=== PATIENT | female | born 1990 | race African-American/Black ===

== ENCOUNTER 2021-09-26 06:10 | Inpatient (IN) | payer OTHER ==
[2021-09-26] MEDS ORDERED: ELECTROLYTE-148 SOLN 500 ML IV ONE (07:46)
[2021-09-26] MEDS ORDERED: CITRIC ACID/SODIUM CITRATE 30 ML UNIT-DOSE CUP PO ONE (07:46)
[2021-09-26] MEDS ORDERED: ELECTROLYTE-148 SOLN 1,000 ML IV SCH (08:00)
[2021-09-26 08:08] VITALS: BMI 29.2
[2021-09-26] MEDS ORDERED: ceFAZolin SODIUM 1 GM VIAL ONE (09:50)
[2021-09-26] MEDS ORDERED: KETOROLAC TROMETHAMINE 30 MG/1 ML VIAL ONE (09:50)
[2021-09-26] MEDS ORDERED: ONDANSETRON 4 MG/2 ML VIAL ONE (09:50)
[2021-09-26] MEDS ORDERED: OXYTOCIN 10 UNITS/ML VIAL ONE (09:50)
[2021-09-26] MEDS ORDERED: METHYLERGONOVINE MALEATE 0.2 MG/1 ML AMP IM PRN (11:23)
[2021-09-26] MEDS ORDERED: SENNOSIDES/DOCUSATE COMBO (SENNA PLUS) TABLET (UD) PO PRN (11:23)
[2021-09-26] MEDS ORDERED: ACETAMINOPHEN 325 MG TABLET (FP) PO PRN (11:23)
[2021-09-26] MEDS ORDERED: IBUPROFEN 800 MG/8 ML IJ IVPB PRN (11:23)
[2021-09-26] MEDS ORDERED: OXYTOCIN 20 UNITS in 0.9% NS 20 UNIT/1,000 ML INFUS.BAG IV ONE (12:21)
[2021-09-26] MEDS: OXYTOCIN 20 UNITS in 0.9% NS 20 UNIT/1,000 ML INFUS.BAG IV SCH ×2 (12:30→21:55)
[2021-09-26] MEDS ORDERED: ONDANSETRON 4 MG/2 ML VIAL IVPUSH PRN (12:35)
[2021-09-26] MEDS ORDERED: oxyCODONE HCL 5 MG TABLET PO PRN ×2 (23:23)
[2021-09-27] MEDS: SIMETHICONE 80 MG TAB.CHEW (FP) PO PRN ×4 (03:20→22:27)
[2021-09-27 08:46] LABS: BASO % 0.2 % (0-2.0); EOS % 0.7 % (0-4.5); HEMATOCRIT 27.5 % (32.4-45.2); HEMOGLOBIN 9.3 GM/dL (10.7-15.3); MCH 29.2 pg (25.7-33.7); MCHC 33.9 g/dl (32.0-36.0); MONO % 8.7 % (3.8-10.2); NEUT % 75.4 % (42.8-82.8); PLATELET COUNT 195 10^3/uL (134-434); RDW 13.8 % (11.6-15.6); WHITE BLOOD COUNT 11.3 K/mm3 (4.0-10.0)
[2021-09-27] MEDS: PRENATAL VITAMINS W/ FOLIC ACID TABLET (FP) PO SCH (10:23)
[2021-09-27] MEDS ORDERED: BISACODYL 10 MG SUPP.RECT RC PRN (11:23)
[2021-09-27] MEDS: IBUPROFEN 600 MG TABLET (FP) PO PRN (15:59)
[2021-09-28] MEDS: IBUPROFEN 600 MG TABLET (FP) PO PRN (02:49)
[2021-09-28 10:27] VITALS: BP 110/74; PULSE 90; TEMP 98.1
[2021-09-28] MEDS: PRENATAL VITAMINS W/ FOLIC ACID TABLET (FP) PO SCH (10:33)
== END 2021-09-28 12:15 | disposition home or self-care (01) | DRG 540 ==
LOC: JLDR 06:10 → J3W 12:45
PROVIDERS: ADMIT Obstetrics & Gynecology; ATTEND Obstetrics & Gynecology
PROC: 10D00Z1 Extraction of Products of Conception, Low, Open Approach (ICD-10-PCS; principal; 2021-09-26)
DX: O34.211 Maternal care for low transverse scar from previous cesarean delivery (principal); O32.2XX0 Maternal care for transverse and oblique lie, not applicable or unspecified; Z3A.39 39 weeks gestation of pregnancy; Z37.0 Single live birth
CPT/HCPCS: 36415; 85025

== ENCOUNTER 2024-01-10 10:19 | Emergency (ER) | payer OTHER ==
[2024-01-10 10:32] VITALS: BP 133/70; PULSE 104; RESP 18; TEMP 98.1; BMI 20.5
[2024-01-10] MEDS ORDERED: DIPHTH,PERTUSS(ACELL),TET 0.5 ML DISP.SYRIN IM ONE (12:49)
[2024-01-10] MEDS: DIPHTH,PERTUSS(ACELL),TET 0.5 ML DISP.SYRIN IM ONE (12:52)
== END 2024-01-10 13:15 | disposition home or self-care (01) ==
LOC: JER 10:19 → JERFT 10:19
PROC: 0HQFXZZ Repair Right Hand Skin, External Approach (ICD-10-PCS; principal; 2024-01-10)
PROC: 3E0234Z Introduction of Serum, Toxoid and Vaccine into Muscle, Percutaneous Approach (ICD-10-PCS; 2024-01-10)
DX: S61.511A Laceration without foreign body of right wrist, initial encounter (principal); W26.8XXA Contact with other sharp object(s), not elsewhere classified, initial encounter
CPT/HCPCS: 12002-25; 90471; 90715; 99283-25

== ENCOUNTER 2024-03-13 19:34 | Emergency (ER) | payer OTHER ==
[2024-03-13 19:41] VITALS: BP 128/78; PULSE 91; RESP 18; TEMP 98.3; BMI 21.9
== END 2024-03-13 23:22 | disposition home or self-care (01) ==
LOC: JERFT 19:34 → JER 19:34
PROC: 0CQ0XZZ Repair Upper Lip, External Approach (ICD-10-PCS; principal; 2024-03-13)
DX: S01.511A Laceration without foreign body of lip, initial encounter (principal); W22.09XA Striking against other stationary object, initial encounter
CPT/HCPCS: 99282-25

== ENCOUNTER 2024-03-18 13:06 | Emergency (ER) | payer OTHER ==
[2024-03-18 13:11] VITALS: BP 136/86; PULSE 86; RESP 18; TEMP 97; BMI 22.3
== END 2024-03-18 16:06 | disposition home or self-care (01) ==
LOC: JERFT 13:06
DX: Z48.00 Encounter for change or removal of nonsurgical wound dressing (principal)
CPT/HCPCS: 99281-25

== ENCOUNTER 2025-06-27 03:09 | Emergency (ER) | payer OTHER ==
[2025-06-27 03:34] VITALS: BMI 22.3
[2025-06-27] MEDS ORDERED: ACETAMINOPHEN INJECTION 100 ML ONE (03:52)
[2025-06-27] MEDS: ACETAMINOPHEN 500 MG TABLET (FP) PO ONE (04:08)
[2025-06-27] MEDS: ACETAMINOPHEN 1000 MG/100 ML BAG IVPB ONE (04:09)
[2025-06-27 04:22] LABS: ABSOLUTE IMMATURE GRANULOCYTES 0.03 x10^3/uL (0.0-0.031); BASOPHILS # 0.02 x10^3/uL (0.01-0.08); EOSINOPHIL % 0.2 % (0.7-5.8); EOSINOPHILS # 0.02 x10^3/uL (0.04-0.36); MCHC 36.4 g/dl (32.2-35.5); MEAN CELL VOLUME 83.6 fl (79.4-94.8); MEAN PLT VOLUME 9.0 fl (9.4-12.3); MONOCYTE # 0.58 x10^3/uL (0.24-0.86); MONOCYTE % 6.5 % (4.7-12.5); RDW 11.5 % (12.1-16.8)
[2025-06-27 04:29] LABS: INR 0.92 (0.83-1.09); PROTHROMBIN TIME (PATIENT) 10.0 SEC (9.7-13.0)
[2025-06-27 04:32] LABS: ACTIVATED PTT 25.6 SECONDS (25.2-36.5)
[2025-06-27 04:45] LABS: GLUCOSE,RANDOM 99.0 mg/dL (74-106); TOT PROT 7.4 g/dl (6.4-8.2)
[2025-06-27 04:46] LABS: CO2 23.0 mmol/L (21-32)
[2025-06-27 04:47] LABS: ALK PHOS 50.0 U/L (40-150)
[2025-06-27 04:50] LABS: SGOT/AST 37.0 U/L (5-34); SGPT/ALT 31.0 U/L (0-55)
[2025-06-27 04:51] LABS: CREATININE 0.65 mg/dL (0.55-1.3)
[2025-06-27 05:11] LABS: HCV DIAGNOSTIC IN-HOUSE W/RFLX NON-REACTIVE (NONREACTIVE); HIV INTERPRETATION NEGATIVE (NEGATIVE)
[2025-06-27 06:00] VITALS: BP 116/80; PULSE 95; RESP 16; TEMP 98.4
[2025-06-27] MEDS ORDERED: LIDOCAINE 2.5%/PRILOCAINE 2.5% (5 Gram/TUBE) TP ONE (06:16)
[2025-06-27] MEDS: LIDOCAINE 2.5%/PRILOCAINE 2.5% 30 GRAM TUBE TP ONE (06:22)
[2025-06-27] MEDS ORDERED: KETOROLAC TROMETHAMINE 15 MG/ML VIAL ONE (06:53)
[2025-06-27] MEDS: KETOROLAC TROMETHAMINE 15 MG/ML VIAL IVPUSH ONE (06:58)
== END 2025-06-27 11:10 | disposition home or self-care (01) ==
LOC: JER 03:09
PROC: 0HQ1XZZ Repair Face Skin, External Approach (ICD-10-PCS; principal; 2025-06-27)
PROC: 3E0333Z Introduction of Anti-inflammatory into Peripheral Vein, Percutaneous Approach (ICD-10-PCS; 2025-06-27)
PROC: 3E033NZ Introduction of Analgesics, Hypnotics, Sedatives into Peripheral Vein, Percutaneous Approach (ICD-10-PCS; 2025-06-27)
DX: S01.511A Laceration without foreign body of lip, initial encounter (principal); S00.83XA Contusion of other part of head, initial encounter; S50.11XA Contusion of right forearm, initial encounter; S50.12XA Contusion of left forearm, initial encounter; R10.20 Pelvic and perineal pain unspecified side; R40.0 Somnolence; F10.929 Alcohol use, unspecified with intoxication, unspecified; Y04.8XXA Assault by other bodily force, initial encounter; Y92.009 Unspecified place in unspecified non-institutional (private) residence as the place of occurrence of the external cause
CPT/HCPCS: 36415; 70450-TC; 70486-TC; 71045-TC-FY; 72125-TC; 72170-TC-FY; 73070-TC-RT-FY; 73090-TC-LT-FY; 80053; 84703; 85025; 85610; 85730; 86803; 86850; 86900; 86901; 87389; 99285-25